=== PATIENT | male | born 1940 | race Caucasian/White ===

== ENCOUNTER 2016-09-05 12:32 | Outpatient (CLI) | payer MEDICARE, OTHER | END 2016-09-05 12:33 | LOC: CARD 12:32 | PROVIDERS: ATTEND Internal Medicine Cardiovascular Disease | DX: I48.2 Chronic atrial fibrillation (principal) | CPT/HCPCS: G0463 ==

== ENCOUNTER 2016-12-10 15:45 | Outpatient (CLI) | payer MEDICARE, OTHER | END 2016-12-10 15:46 | LOC: LAB 15:45 | PROVIDERS: ATTEND Family Medicine | DX: E11.9 Type 2 diabetes mellitus without complications (principal) | CPT/HCPCS: 36415; 83036 ==

== ENCOUNTER 2017-04-03 09:35 | Outpatient (CLI) | payer MEDICARE, OTHER | END 2017-04-03 09:36 | LOC: LAB 09:35 | PROVIDERS: ATTEND Family Medicine | DX: E11.9 Type 2 diabetes mellitus without complications (principal); E78.5 Hyperlipidemia, unspecified | CPT/HCPCS: 36415; 80061; 83036 ==

== ENCOUNTER 2017-09-04 12:23 | Outpatient (CLI) | payer MEDICARE, OTHER | END 2017-09-04 12:24 | LOC: CARD 12:23 | PROVIDERS: ATTEND Nurse Practitioner | DX: I48.2 Chronic atrial fibrillation (principal); I71.2 Thoracic aortic aneurysm, without rupture; R06.02 Shortness of breath; I10 Essential (primary) hypertension; E11.9 Type 2 diabetes mellitus without complications | CPT/HCPCS: G0463 ==